=== PATIENT | female | born 1935 | race Caucasian/White ===

== ENCOUNTER 2016-12-01 11:33 | Emergency (ER) | payer OTHER ==
[~2016-12-01] VITALS: Ht 160 cm; Wt 77.4 kg
[~2016-12-01 11:33] MED LIST: ASPI325T4 PO; ATOR-24 PO; CLB200 PO; CLOP1TAB15 PO; COEN150C4 PO; FLUT0.0529 NAE; LEVO50TA60 PO; LSN5 PO; METO25TA56 PO; MULT-884 PO; TRAM-10 PO; VTMD1000 PO; XRL10 PO; [UNRECOGNIZED DRUG - OTHER] OPB
[2016-12-01 11:36] VITALS: TEMP 36.5; Ht 160 cm; Wt 77.4 kg
[2016-12-01] MEDS ORDERED: SYMIN/8045 PO (11:51)
[2016-12-01] MEDS ORDERED: LEVO50TA6 PO (11:51)
[2016-12-01] MEDS ORDERED: PLV75 PO (11:51)
[2016-12-01] MEDS ORDERED: ASPI-461 PO (11:51)
[2016-12-01] MEDS ORDERED: SODIUM CHLORIDE 0.9% 1000ML 1,000 ML IV STA (12:34)
[2016-12-01] MEDS ORDERED: ALBUT/IPRATROP 3MG/0.5MG NEB 3 ML VIAL INH STA (12:34)
[2016-12-01] MEDS ORDERED: SODIUM CHLORIDE 0.9% 1000ML 250 ML IV STA (12:34)
--- NOTE | 2016-12-01 12:36 | EMERGENCY ROOM VISIT NOTE ---
History Report prepared by Richard: Joey Méndze Under the Supervision of: Dr. Rambo Holt M.D. First contact with patient: 12:24 Chief Complaint: FLU LIKE SX Stated Complaint: CHEST CONGESTION History of Present Illness The patient is an 81 year old female who presents to the Emergency Room with complaints of persistent flu-like symptoms for the past five days. The patient started to experiencing congestion and a cough five days ago. The cough is productive. The patient also complains of shortness of breath and pain in her ribs and chest with coughing. She had a fever two days ago, but did not measure her temperature yesterday or today. She denies any nausea, vomiting, diarrhea, bowel or bladder problems, or urinary symptoms. She is keeping up with her fluids. The patient has a history of mild COPD for which she has an inhaler. Her inhaler did help relieve her current symptoms. She does not take Prednisone. She denies any history of diabetes or recent falls. The patient has a history of NM, and notes that the pain she has been feeling in her chest is not similar to the heart attack pain. 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 Source of History: patient, spouse/significant other Onset: five days Position: other (respiratory) Quality: other (flu-like symptoms) Timing: other (persistent) Associated Symptoms: + SOB, + cough, + fevers, No diarrhea, No nausea, No urinary symptoms, No vomiting Review of Systems See HPI for pertinent positives & negatives. A total of 10 systems reviewed and were otherwise negative. 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 Nurse's notes were reviewed and I agree with. Mild COPD Family History Patient reports no known family medical history. Social History Smoking Status: Former Smoker Alcohol Use: none Drug Use: none Current/Historical Medications Scheduled Aspirin (Aspirin), 81 MG PO PM Atorvastatin (Lipitor), 40 MG PO QPM Azithromycin (Zithromax Z-Steven), 0 PO UD Budesonide/Formoterol Fumarate (Symbicort 80/4.5 Inhaler), 1 PUFF PO BID Celecoxib (Celebrex), 200 MG PO BID Cholecalciferol (Vitamin D3), 2,000 INTER.UNIT PO QPM Clopidogrel (Plavix), 75 MG PO DAILY Coenzyme Q10 (Ubidecarenone) (Coq10), 300 MG PO DAILY Fluticasone Propionate (Nasal) (Flonase), 1 SPRAYS CHRIS BID Levothyroxine Sodium (Levothyroxine Sodium), 50 MCG PO QAM Lisinopril (Lisinopril), 5 MG PO DAILY Methylprednisolone (Medrol Dosepak), 0 PO DAILY Metoprolol Tartrate (Lopressor) (Lopressor), 25 MG PO DAILY Multiple Vitamin (Multi Vitamin Daily), 1 TAB PO DAILY Oseltamivir Phosphate (Tamiflu), 1 CAP PO BID Allergies Coded Allergies: Codeine (Verified Allergy, Unknown, 12/01/16) ITCHING,NIGHTMARES Hydrocodone (Verified Adverse Reaction, Mild, NIGHTMARES, ITCHY, 12/01/16) Physical Exam Vital Signs Date Time Temp Pulse Resp B/P Pulse Ox O2 Delivery O2 Flow Rate FiO2 12/01/16 16:09 69 166/81 97 12/01/16 14:00 66 16 144/82 96 12/01/16 11:36 36.5 81 18 165/84 94 Room Air Physical Exam General: Older female with intemrittent cough, appears to be in no respiratory distress. HEENT: Normal cephalic atraumatic. Pupils are equal round and reactive to light. Sclerae are anicteric. Extraocular movements are intact. Oropharynx is pink with moist mucous membranes. No swelling of the mouth lips or tongue. Neck: Supple with a midline trachea. No meningeal signs or stiffness, no JVD or bruits. No Stridor. Chest: Clear to auscultation bilaterally. No wheezes or rhonchi. No increased work of breathing. Heart: regular rate and rhythm. Abdomen: Soft nontender, nondistended without rebound guarding or rigidity. Extremities: No cyanosis clubbing or edema. No calf tenderness or assymetry Spine/Back. Non tender to palpation. No CVA tenderness Skin: Good turgor without rashes. Neurologic exam: Cranial nerves two through 12 are intact. Motor and sensation are intact and symmetrical throughout. Medical Decision & Procedures ER Provider Diagnostic Interpretation: X-ray results as stated below per interpretation by me and the radiologist: CHEST ONE VIEW PORTABLE CLINICAL HISTORY: Chest pain COMPARISON STUDY: Chest radiograph December 15, 2015. 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 Cardiomediastinal silhouette is stable. Mitral annular calcification is again noted. Linear left lung opacities are suggestive atelectasis or scarring. There is no pulmonary edema. There is no consolidation to suggest pneumonia. IMPRESSION: No acute cardiopulmonary findings. Electronically signed by: Ifeanyi Hilario M.D. 12/01/2016 1:16 PM Dictated Date/Time: 12/01/2016 1:15 PM Laboratory Results 12/01/16 12:15 Red Blood Count 4.29, Mean Corpuscular Volume 93.0, Mean Corpuscular Hemoglobin 30.8, Mean Corpuscular Hemoglobin Concent 33.1, Mean Platelet Volume 11.4, Neutrophils (%) (Auto) 50.8, Lymphocytes (%) (Auto) 24.8, Monocytes (%) (Auto) 19.1, Eosinophils (%) (Auto) 4.3, Basophils (%) (Auto) 0.8, Neutrophils # (Auto ) 2.59, Lymphocytes # (Auto) 1.26, Monocytes # (Auto) 0.97, Eosinophils # (Auto ) 0.22, Basophils # (Auto) 0.04 12/01/16 12:15 Test 12/01/16 12:05 12/01/16 12:15 12/01/16 12:46 Influenza Type A Antigen POS for Influ A (NEG) Influenza Type B Antigen Neg for Influ B (NEG) White Blood Count 5.09 K/uL (4.8-10.8) Red Blood Count 4.29 M/uL (4.2-5.4) Hemoglobin 13.2 g/dL (12.0-16.0) Hematocrit 39.9 % (37-47) Mean Corpuscular Volume 93.0 fL (80-100) Mean Corpuscular Hemoglobin 30.8 pg (25-34) Mean Corpuscular Hemoglobin Concent 33.1 g/dl (32-36) Platelet Count 221 K/uL (130-400) Mean Platelet Volume 11.4 fL (7.4-10.4) Neutrophils (%) (Auto) 50.8 % Lymphocytes (%) (Auto) 24.8 % Monocytes (%) (Auto) 19.1 % Eosinophils (%) (Auto) 4.3 % Basophils (%) (Auto) 0.8 % Neutrophils # (Auto) 2.59 K/uL (1.4-6.5) Lymphocytes # (Auto) 1.26 K/uL (1.2-3.4) Monocytes # (Auto) 0.97 K/uL (0.11-0.59) Eosinophils # (Auto) 0.22 K/uL (0-0.5) Basophils # (Auto) 0.04 K/uL (0-0.2) RDW Standard Deviation 46.0 fL (36.4-46.3) RDW Coefficient of Variation 13.5 % (11.5-14.5) Immature Granulocyte % (Auto) 0.2 % Immature Granulocyte # (Auto) 0.01 K/uL (0.00-0.02) Anion Gap 11.0 mmol/L (3-11) Est Creatinine Clear Calc Drug Dose 45.4 ml/min Estimated GFR () 65.5 Estimated GFR (Non- 56.5 BUN/Creatinine Ratio 22.6 (10-20) Calcium Level 8.9 mg/dl (8.5-10.1) Total Bilirubin 0.2 mg/dl (0.2-1) Direct Bilirubin < 0.1 mg/dl (0-0.2) Aspartate Amino Transf (AST/SGOT) 25 U/L (15-37) Alanine Aminotransferase (ALT/SGPT) 26 U/L (12-78) Alkaline Phosphatase 55 U/L (45-117) Total Protein 6.9 gm/dl (6.4-8.2) Albumin 3.2 gm/dl (3.4-5.0) Lipase 108 U/L (73-393) Bedside Troponin I 0.010 ng/ml (0-0.045) NU-Aar-M-Type Natriuretic Peptide 557 pg/ml (0-1800) Laboratory studies as stated above per my review. Medications Administered Medications (Trade) Dose Ordered Sig/Franklin Route Start Time Stop Time Status Last Admin Dose Admin Sodium Chloride 250 ml @ 999 mls/hr Q16M STAT IV 12/01/16 12:34 12/01/16 12:49 DC 12/01/16 12:45 999 MLS/HR Sodium Chloride (Nss 1000ml) 1,000 ml @ 100 mls/hr Q10H STAT IV 12/01/16 12:34 2/18/17 16:33 DC 12/01/16 12:45 100 MLS/HR Albuterol/ Ipratropium (Duoneb) 3 ml NOW STAT INH 12/01/16 12:34 12/01/16 12:36 DC 12/01/16 12:44 3 ML Prednisone (PredniSONE TAB) 60 mg NOW STAT PO 12/01/16 15:18 12/01/16 15:20 DC 12/01/16 15:52 60 MG Azithromycin (Zithromax Tab) 500 mg NOW ONCE PO 12/01/16 15:30 12/01/16 15:32 DC 12/01/16 15:51 500 MG Oseltamivir Phosphate (Tamiflu Cap) 75 mg NOW STAT PO 12/01/16 15:18 12/01/16 15:20 DC 12/01/16 15:52 75 MG Miscellaneous Information (Nursing Verbal Med Order) 1 ea ONE ONCE N/A 12/01/16 16:00 12/01/16 16:01 DC 12/01/16 16:08 1 EA ECG Indication: SOB/dyspnea Rate (beats per minute): 77 Rhythm: normal sinus Findings: no acute ischemic change, other (non-specific T wave abnormalities) Comparison ECG Date: 24 December 2014 Change: no significant change ED Course 1226: Past medical records reviewed. The patient was evaluated in room C8, and a complete history and physical examination were performed. 1234: DuoNeb 3 ml INH, NSS 1000 ml @ 100 mls/hr, NSS 250 ml @ 999 mls/hr. 1518: Tamiflu 75 mg PO, Prednisone 60 mg PO. 1520: Reassessed the patient. Discussed the findings with her. She verbalized understanding and agreement of the treatment plan. The patient is ready for discharge. 1530: Azithromycin 500 mg PO. Medical Decision Differential diagnosis includes influenza, pneumonia, bronchitis, ACS, arrhythmia, electrolyte or metabolic abnormality. This patient comes in as described above. She was placed in room C8. She is here for treatment and evaluation of a cough and flulike symptoms. She has a history of COPD. She did chest pain with coughing. She looks well on exam. She is well-hydrated appearing and nontoxic appearing. IV access was established and she was gently hydrated with IV normal saline. Chest x-ray, EKG , and multiple blood testing was obtained. She has no evidence pneumonia or CHF. EKG is nonischemic appearing unchanged from old. Her troponin is not elevated. She's had no acute electrolyte or metabolic abnormalities. Influenza swab was positive. She does have influenza. I think she has a bronchitis thats exacerbating her COPD as well she did receive albuterol/ Atrovent neb while she was here. She also received prednisone 60 mg by mouth to send her home with a prescription for Tamiflu as well as azithromycin and a Medrol Dosepak to cover these etiologies. She should rest and drink plenty of fluids return if: Worsening of symptoms, shortness of breath, fever or chills, any new problems concerns. She's happy with the plan and discharged to home. She should follow up with her doctor on Saturday for recheck Impression Primary Impression: Influenza A Additional Impression: Bronchitis Scribe Attestation The scribe's documentation has been prepared under my direction and personally reviewed by me in its entirety. I confirm that the note above accurately reflects all work, treatment, procedures, and medical decision making performed by me. Departure Information Dispostion Home / Self-Care Prescriptions Azithromycin (ZITHROMAX Z-STEVEN) 250 Mg Tab 0 PO UD, #1 PKT Prov: Rambo Holt M.D. 12/01/16 Methylprednisolone (MEDROL DOSEPAK) 4 Mg Steven 0 PO DAILY, #1 PKT Prov: Rambo Holt M.D. 12/01/16 Oseltamivir Phosphate (Tamiflu) 75 Mg Cap 1 CAP PO BID for 5 Days, #10 CAP Prov: Rambo Holt M.D. 12/01/16 Referrals RV. Dixon MD (PCP) Forms HOME CARE DOCUMENTATION FORM, IMPORTANT VISIT INFORMATION Patient Instructions My [facility] Additional Instructions Rest. Drink plenty of fluids. Use Tamiflu twice a day for 5 daysfor the flu Use azithromycin Z-Steven as directedantibiotic Continue using your inhaler. Medrol Dosepak as directedsteroid Return if: Worsening of symptoms, shortness of breath, not tolerating fluids, fever chills, any new problems or concerns. Problem Qualifiers
[2016-12-01 12:44] LABS: BASO % 0.8 %; BASO ABS # 0.04 K/uL (0-0.2); COMPLETE YES; EOS % 4.3 %; HEMATOCRIT 39.9 % (37-47); IG% 0.2 %; LYMPH % 24.8 %; LYMPH ABS # 1.26 K/uL (1.2-3.4); MEAN CORPUSCULAR HEMOGLOBIN 30.8 pg (25-34); MEAN CORPUSCULAR HGB CONC 33.1 g/dl (32-36); MEAN PLATELET VOLUME 11.4 fL (7.4-10.4); MONO % 19.1 %; NEUT % 50.8 %; PLATELET COUNT 221 K/uL (130-400); RED BLOOD COUNT 4.29 M/uL (4.2-5.4); WHITE BLOOD COUNT 5.09 K/uL (4.8-10.8)
[2016-12-01 12:53] LABS: ALT/SGPT 26 U/L (12-78); BLOOD UREA NITROGEN 21 mg/dl (7-18); BUN/CREATININE RATIO 22.6 (10-20); CALCIUM 8.9 mg/dl (8.5-10.1); CARBON DIOXIDE 27 mmol/L (21-32); CHLORIDE 106 mmol/L (98-107); CREATININE 0.94 mg/dl (0.60-1.20); GLUCOSE 96 mg/dl (70-99); POTASSIUM 3.9 mmol/L (3.5-5.1); SODIUM 144 mmol/L (136-145)
[2016-12-01 12:56] LABS: ALKALINE PHOSPHATASE 55 U/L (45-117); AST/SGOT 25 U/L (15-37)
[2016-12-01 13:02] LABS: POINT OF CARE TROPONIN I 0.01 ng/ml (0-0.045)
--- NOTE | 2016-12-01 13:17 | DIAGNOSTIC IMAGING REPORT ---
CHEST ONE VIEW PORTABLE CLINICAL HISTORY: Chest pain COMPARISON STUDY: Chest radiograph December 15, 2015. 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 Cardiomediastinal silhouette is stable. Mitral annular calcification is again noted. Linear left lung opacities are suggestive atelectasis or scarring. There is no pulmonary edema. There is no consolidation to suggest pneumonia. IMPRESSION: No acute cardiopulmonary findings. Electronically signed by: Ifeanyi Hilario M.D. 12/01/2016 1:16 PM Dictated Date/Time: 12/01/2016 1:15 PM
[2016-12-01] MEDS ORDERED: OSELTAMIVIR PHOSPHATE 75 MG CAP PO STA (15:18)
[2016-12-01] MEDS ORDERED: AZITTAB PO (15:21)
[2016-12-01] MEDS ORDERED: NF406 PO (15:21)
[2016-12-01] MEDS ORDERED: METH4PAK PO (15:21)
[2016-12-01] MEDS ORDERED: AZITHROMYCIN 250 MG TAB PO ONE (15:30)
[2016-12-01] MEDS ORDERED: EMPTY 8 DRAM VIAL ONE (15:59)
[2016-12-01] MEDS ORDERED: NURSING VERBAL MED ORDER ONE (16:00)
[2016-12-01 16:09] VITALS: BP 166/81; PULSE 69; O2SAT 97
== END 2016-12-01 16:10 | disposition home or self-care (01) ==
LOC: C.EDB 11:34 → C.EDC 16:10
DX: J09.X2 Influenza due to identified novel influenza A virus with other respiratory manifestations (principal); J40 Bronchitis, not specified as acute or chronic; J44.9 Chronic obstructive pulmonary disease, unspecified; I25.2 Old myocardial infarction; Z79.02 Long term (current) use of antithrombotics/antiplatelets; Z79.82 Long term (current) use of aspirin; Z79.899 Other long term (current) drug therapy; Z88.5 Allergy status to narcotic agent

== ENCOUNTER → 2017-01-07 | Outpatient (CLI) | payer OTHER ==
[~2017-01-07] MED LIST changes: +ASPI-461 PO; -ASPI325T4 PO; +LEVO50TA6 PO; -LEVO50TA60 PO; +SYMIN/8045 PO; -TRAM-10 PO; -XRL10 PO; -[UNRECOGNIZED DRUG - OTHER] OPB
[2017-01-07 10:13] LABS: BASO % 1.4 %; BASO ABS # 0.09 K/uL (0-0.2); COMPLETE YES; EOS % 3.4 %; HEMATOCRIT 40.3 % (37-47); IG% 0.2 %; LYMPH % 25.9 %; LYMPH ABS # 1.68 K/uL (1.2-3.4); MEAN CELL VOLUME 91.6 fL (80-100); MEAN CORPUSCULAR HEMOGLOBIN 30.5 pg (25-34); MEAN CORPUSCULAR HGB CONC 33.3 g/dl (32-36); MEAN PLATELET VOLUME 10.9 fL (7.4-10.4); MONO % 9.9 %; NEUT % 59.2 %; PLATELET COUNT 279 K/uL (130-400); WHITE BLOOD COUNT 6.48 K/uL (4.8-10.8)
[2017-01-07 10:52] LABS: ALT/SGPT 22 U/L (12-78); AST/SGOT 20 U/L (15-37); BLOOD UREA NITROGEN 21 mg/dl (7-18); BUN/CREATININE RATIO 22.9 (10-20); CALCIUM 9.3 mg/dl (8.5-10.1); CARBON DIOXIDE 33 mmol/L (21-32); CHLORIDE 105 mmol/L (98-107); GLUCOSE 93 mg/dl (70-99); POTASSIUM 4.2 mmol/L (3.5-5.1); SODIUM 143 mmol/L (136-145)
[2017-01-07 11:03] LABS: ALB/GLOB RATIO 1.1 (0.9-2); ALKALINE PHOSPHATASE 57 U/L (45-117); CHOLESTEROL 227 mg/dl (0-200); CHOLESTEROL/HDL RATIO 3.7; HDL CHOLESTEROL 61 mg/dl; LDL CHOLESTEROL CALCULATED 138 mg/dl; TRIGLYCERIDES 139 mg/dl (0-150); VERY LOW DENSITY LIPOPROT CALC 28 mg/dl
== END | disposition home or self-care (01) ==
LOC: C.LAB 09:49
PROVIDERS: ATTEND Internal Medicine
DX: E03.9 Hypothyroidism, unspecified (principal); E78.5 Hyperlipidemia, unspecified; E55.9 Vitamin D deficiency, unspecified; R26.9 Unspecified abnormalities of gait and mobility; D64.9 Anemia, unspecified

== ENCOUNTER → 2017-09-17 | Outpatient (CLI) | payer OTHER ==
[2017-09-17 10:57] LABS: ALB/GLOB RATIO 0.9 (0.9-2); ALKALINE PHOSPHATASE 73 U/L (45-117); ALT/SGPT 21 U/L (12-78); AST/SGOT 24 U/L (15-37); BLOOD UREA NITROGEN 15 mg/dl (7-18); BUN/CREATININE RATIO 15.9 (10-20); CALCIUM 9.6 mg/dl (8.5-10.1); CARBON DIOXIDE 31 mmol/L (21-32); CHLORIDE 102 mmol/L (98-107); CREATININE 0.96 mg/dl (0.60-1.20); GLUCOSE 94 mg/dl (70-99); POTASSIUM 4.3 mmol/L (3.5-5.1); SODIUM 135 mmol/L (136-145)
== END | disposition home or self-care (01) ==
LOC: C.LAB1850 09:40
PROVIDERS: ATTEND Internal Medicine
DX: J44.9 Chronic obstructive pulmonary disease, unspecified (principal)

== ENCOUNTER → 2018-05-15 | Outpatient (CLI) | payer OTHER ==
[~2018-05-15] MED LIST changes: +LISI-730 PO; -LSN5 PO; +OPTIRAY 320 IV PRN
--- NOTE | 2018-05-15 10:59 | DIAGNOSTIC IMAGING REPORT ---
CT (CHEST) THORAX WITH CT DOSE: 356.03 mGy.cm HISTORY: COPD. Dyspnea. J44.9 Chronic obstructive pulmonary diseas TECHNIQUE: Multiaxial CT images of the chest were performed following the intravenous administration of contrast. A dose lowering technique was utilized adhering to the principles of ALARA. COMPARISON: None. FINDINGS: The lungs are clear. The mediastinal vascular structures are within normal limits. No mediastinal or hilar lymphadenopathy. No pleural effusion or pneumothorax. Limited views of the upper abdomen demonstrate a normal liver and spleen. IMPRESSION: No significant abnormality identified within the chest. The above report was generated using voice recognition software. It may contain grammatical, syntax or spelling errors. Electronically signed by: Celio Trivedi M.D. 05/15/2018 10:58 AM Dictated Date/Time: 05/15/2018 10:56 AM
--- NOTE | 2018-05-15 11:44 | DIAGNOSTIC IMAGING REPORT ---
VIDEO SWALLOW HISTORY: Dysphagia J44.9 Chronic obstructive pulmonary [id number] Esophageal dysmo TECHNIQUE: Video fluoroscopic evaluation of swallowing was performed in the AP and lateral projections by the speech pathology staff. The patient is fed nectar-thick and thin liquid barium, a barium coated wafer, and barium pudding. FLUOROSCOPY TIME: 2.1 minutes. COMPARISON STUDY: None. FINDINGS: There is normal hyoid excursion and epiglottic deflection. Unremarkable hypopharyngeal motility. No evidence for aspiration. Mild esophageal irritability. IMPRESSION: 1. No aspiration identified. Mild esophageal irritability 2. Please see the speech pathologist report for detailed findings and recommendations. The above report was generated using voice recognition software. It may contain grammatical, syntax or spelling errors. Electronically signed by: Celio Trivedi M.D. 05/15/2018 11:42 AM Dictated Date/Time: 05/15/2018 11:41 AM
--- NOTE | 2018-05-15 13:00 | SWALLOWING EVALUATION ---
HISTORY: This 83 year-old woman, from home, who was referred for a VFSS at [facility]. She has a PMH significant for CAD, HTN, TIA, hypothyroidism, and sciatica. She has not had speech therapy in the past. Currently the patient's diet level is regular with thins. Pt. reports no difficulty with swallowing however she feels like something is occasionally stuck in her throat while eating. PROCEDURE: The patient was seen in the Radiology Department of [facility] for the VFSS. Cursory examination of the oral cavity revealed adequate dentition. Movement of the articulators was WNL. The patient was seated on a stool and was viewed in both the Anterior-Posterior (A-P) and Lateral planes. Volitional phonation exercises completed in the A-P plane revealed bilateral vocal fold movement and vocal intensity within functional limits. In the lateral plane, the patient was given the following barium-infused boluses: 1 tsp thin barium with oral hold 1x, self presented single cup swallow-thin barium 1x, self presented serial cup swallow 1x. 1 tsp nectar thick barium with oral hold 1x, self presented single cup swallow- nectar thick barium 1x, self presented serial cup swallows 1x. 1 tsp barium pudding-self presented 2x. 1/2 Cracker with barium paste. In the A-P view, pt was given 1 tsp barium pudding with esophageal scan. RESULTS: Oral Phase:Pt. had adequate lip closure and no labial escape of any food or liquid items presented. Pt. had adequate tongue control and bolus hold by demonstrating a cohesive bolus between tongue and palatal seal. Bolus preparation and mastication was WFL as timely and efficient chewing and mashing was observed with all consistencies. Bolus transport and lingual motion were functional as pt. demonstrated brisk tongue motion and no oral residue resulting in complete oral clearance. Initiation of pharyngeal swallow began with bolus head at posterior angle of ramus. * Overall WFL for oral phase of swallow. Pharyngeal Phase:Soft Palate Elevation was complete for all boluses and no bolus was between the soft palate and the pharyngeal wall. Laryngeal elevation was WFL showing complete superior movement of the thyroid cartilage with complete approximation of arytenoids to epiglottic base. Anterior Hyoid excursion was observed with complete anterior movement as well as complete epiglottic inversion. Laryngeal Vestibular closure was complete and no air or barium was noted in laryngeal vestibule. Pharyngeal stripping wave was present and complete. Pharyngeal contraction was complete for all tested items. Pharyngoesophageal segment opening was also WFL showing complete distension and complete duration with no obstruction of flow. Tongue base retraction was noted with all consistencies and tongue base made effective contact with posterior pharyngeal wall throughout study. There was no Pharyngeal residue resulting in complete pharyngeal clearance of all tested items. *Overall WFL for pharyngeal stage of the swallow. Esophageal Phase:Opening and closing of the UES was timely and efficient with complete clearance of all tested items. Did note esophageal dysmotility. SUMMARY/RECOMMENDATIONS: Overall pt. presents with NO oral or pharyngeal dysphagia. NO aspiration and NO penetration occurred throughout this study. Recommendin. Regular- slippery diet with thin liquids 2. GERD precautions - upright for all intake, remain upright for 30 min after all intake, no intake 30 min before bed, keep head of bed elevated at least 30 degrees at all times. All results and recommendations were discussed with the pt. and family. Written instruction on GERD precautions and slippery diet were provided and fully explained to the pt. and daughter. Thank you for referral of this patient. Please contact me at if any additional information is needed.
== END | disposition home or self-care (01) ==
LOC: C.CTS 10:10
PROVIDERS: ATTEND Internal Medicine Pulmonary Disease
DX: J44.9 Chronic obstructive pulmonary disease, unspecified (principal); K22.4 Dyskinesia of esophagus

== ENCOUNTER 2021-05-08 13:28 | Inpatient (IN) ==
[2021-05-08] MEDS ORDERED: SODIUM CHLORIDE 0.9% 500 ML IV STA (14:37)
[2021-05-08] MEDS ORDERED: ACETAMINOPHEN 500 MG TAB PO STA (14:37)
[2021-05-08] MEDS ORDERED: AMPICILLIN/SULBACTAM SOD 3,000 MG in 0.9 % SODIUM CHLORIDE 100 ML IV STA (14:37)
--- NOTE | 2021-05-08 14:43 | Emergency Department Note ---
Impression & Plan Cat bite of right lower leg, Cellulitis of leg, right ED Provider Note NAME: NAVDEEP MONTES AGE: 86 SEX: F : 1935 ARRIVES VIA: Walk-In INFORMANT: Patient, the patient's daughter ED PROVIDER(S): Roney Bynum DO CHIEF COMPLAINT: Leg pain HPI: The patient is an 86-year-old female who presented to the emergency department for an evaluation of leg pain. The patient has erythema and swelling to her leg. Her daughter gives most of the history and states that this started 24 hours ago. The patient has had very severe pain and is unable to put any weight on her right leg. She denies having any fever or cough. She has no abdominal pain or chest pain. She was not seen by her primary care physician for the symptoms. Her daughter was concerned because of the severity of pain and brought her directly to the emergency department. She was bitten by a cat which is a barn cat 24 hours ago. The cat is up-to-date with immunizations. She did not take any medications other than Tylenol this morning. She states the pain is moderate to severe and worsens with any ambulation. She does have a history of COPD and has had some breathing difficulties recently but her daughter states that her breathing at this time is improved and is comparable to her baseline. She denies having any drainage from the bite. She is not on any antibiotics. ROS: See above HPI for pertinent positives & negatives. A total of 10 systems reviewed and were otherwise negative. PAST MEDICAL HISTORY: See Below PAST SURGICAL HISTORY: See Below FAMILY HISTORY: See Below SOCIAL HISTORY: See Below HOME MEDICATIONS: See Below ALLERGIES: See Below VITALS: See Below PHYSICAL EXAMINATION: GENERAL: The patient is awake and alert. She is somewhat anxious appearing and appears to be uncomfortable. EYES: The conjunctivae are clear. The pupils are round and reactive. EARS, NOSE, MOUTH AND THROAT: The nose is without any evidence of any deformity. NECK: The neck is nontender and supple. RESPIRATORY: Diminished breath sounds are noted throughout. There is no tachypnea or conversational dyspnea. CARDIOVASCULAR: Regular rate and rhythm noted there no murmurs rubs or gallops normal S1 normal S2. GASTROINTESTINAL: The abdomen is soft. Abdomen is nontender. MUSCULOSKELETAL/EXTREMITIES: There is no evidence of gross deformity full range of motion is noted in the hips and shoulders. SKIN: There is significant ankle edema noted in the right leg. There is erythema which is circumferential in most of the right lower extremity. Pulses are symmetric in both feet. There is a puncture wound to the anterior right leg. There is no drainage. NEUROLOGIC: Patient is awake alert and oriented to person place and situation. Strength is symmetric. MEDICAL DECISION MAKING: The patient is an 86-year-old female who presented to the emergency department for an evaluation of leg pain. The patient had a cat bite with her own cat yesterday. The cat does stay outside mostly but is up-to-date with immunizations. The family noticed that the leg was swollen and red over the course the last 24 hours. The patient was found to have a very elevated white blood cell count. She was treated with IV antibiotics in the emergency department. She was reevaluated multiple times. I discussed the patient's laboratory and radiographic studies with her. Given her age and comorbidities I do not feel the patient would do well as an outpatient treating this cat bite associated cellulitis. For this reason I discussed her case with the on-call [facility] hospitalist. They have agreed to evaluate the patient in the emergency department for further management and disposition. Triage Nursing notes reviewed. Prior medical records reviewed Vital Signs: reviewed and remarkable for hypotension. Differential diagnosis: Cellulitis, abscess, MRSA infection, DVT, necrotizing fasciitis, dermatitis, drug eruption, allergic reaction, as well as other pathologies. ER treatment provided: See below Diagnostics interpreted by me: ECG: none Laboratory studies: As stated above and show below. Imaging studies: See below Consultation(s): 1640: I discussed this case with Dr. Chacon who is on-call for the [facility] group. He will evaluate the patient in the emergency department. Past Med/Surg History Medical History Arteriosclerotic coronary artery disease Asthmatic bronchitis DVT (deep venous thrombosis) Dyslipidemia Esophageal dysmotility Fatigue Gait disturbance History of anemia History of dysphagia Hypothyroidism Low back pain Lump of skin Old inferior wall myocardial infarction Osteopenia Pulmonary emphysema Shortness of breath on exertion Statin intolerance Vitamin D deficiency Family History Father Prostate cancer Unknown Thyroid disease Denies family history of Colon cancer Ovarian cancer Myocardial infarction Breast cancer Social History Smoking Status: Never smoker Number of Years Since Quit: 6; Hx Alcohol Use: No Hx Substance Use: No Visual Impairment: No Limitations Hearing Ability: Use of Hearing Aid marital status: / Current Living Situation: Family current occupational status: retired Feels Safe at Home: Yes Childhood Exposure to Second-Hand Smoke: No Dental Care, Regularly: Yes Physical Activity Frequency: Does not Exercise Seatbelt Use: always Sunscreen Use: Yes Allergies Allergies Allergy/AdvReac Type Severity Reaction Status Date / Time codeine Allergy Unknown Unknown Verified 05/08/21 16:25 hydrocodone AdvReac Mild NIGHTMARES, Verified 05/08/21 16:25 ITCHY Ksmiaes-Zxj-Lao Reductase AdvReac muscle Verified 05/08/21 16:25 Inhibitor aches Home Meds Previous Rx's Medication Instructions Recorded aspirin 81 mg tablet,delayed 81 mg PO DAILY #30 tab 04/01/19 release (Adult Low Dose Aspirin) ereatue-zksarqtfb-locm 333 mg-133 2 tab PO DAILY #60 tab 04/01/19 mg-5 mg tablet cholecalciferol (vitamin D3) 50 2,000 units PO DAILY #30 cap 04/01/19 mcg (2,000 unit) capsule coenzyme Q10 10 mg capsule 10 mg PO DAILY #90 cap 04/01/19 fluticasone propionate 50 1 sprays INTNAS DAILY #16 gm 04/01/19 mcg/actuation nasal spray,suspension (Allergy Relief (fluticasone)) levothyroxine 50 mcg capsule 50 mcg PO DAILY #90 cap 04/01/19 nitroglycerin 0.4 mg sublingual 0.4 mg SL Q5M PRN #25 tab 04/01/19 tablet (Nitrostat) lisinopril 5 mg tablet 5 mg PO DAILY #90 tab 12/21/20 metoprolol tartrate 25 mg tablet 25 mg PO DAILY #90 tab 12/21/20 albuterol sulfate 90 mcg/actuation 2 puff INHALATION QID #8.5 g 01/02/21 aerosol inhaler umeclidinium 62.5 mcg-vilanterol 1 inh INHALATION DAILY #60 ea 01/02/21 25 mcg/actuation powdr for inhalation (Anoro Ellipta) Results & Data (ED) Vital Signs Vital Signs - 24 hr 05/08/21 13:33 05/08/21 15:21 Temperature 37.1 C Temperature Source Temporal Artery Scan Pulse Rate 92 H Pulse Rate [Right Finger] 88 Respiratory Rate 16 20 Blood Pressure 139/66 Blood Pressure Mean 90 Pulse Oximetry 90 94 Oxygen Delivery Method Room Air Room Air Sepsis Recent Fever Within 48 Hours No Sepsis New/Unexplained Change in Mental Status No Sepsis Action Taken by Nursing No Action Required Home Medications Current Medication List: was personally reviewed by me Laboratory Data Attestation: I reviewed the patient's lab results. Result diagrams: 05/08/21 15:19 05/08/21 15:19 Lab Results 05/08/21 05/08/21 05/08/21 Range/Units 15:19 15:19 15:19 WBC 20.19 H (4.8-10.8) K/uL RBC 4.27 (4.2-5.4) M/uL Hgb 13.3 (12.0-16.0) g/dL Hct 39.6 (37-47) % MCV 92.7 (80-100) fL MCH 31.1 (25-34) pg MCHC 33.6 (32-36) g/dL RDW Std Deviation 46.6 H (36.4-46.3) fL RDW Coeff of Lior 13.7 (11.5-14.5) % Plt Count 252 (130-400) K/uL MPV 11.1 H (7.4-10.4) fL Immature Gran % (Auto) 0.3 % Neut % (Auto) 86.8 % Lymph % (Auto) 3.7 % Dillon % (Auto) 9.0 % Eos % (Auto) 0.1 % Baso % (Auto) 0.1 % Neut # (Auto) 17.51 H (1.4-6.5) K/uL Lymph # (Auto) 0.75 L (1.2-3.4) K/uL Dillon # (Auto) 1.81 H (0.11-0.59) K/uL Eos # (Auto) 0.03 (0-0.5) K/uL Baso # (Auto) 0.02 (0-0.2) K/uL Immature Gran # (Auto) 0.07 H (0.00-0.02) K/uL ESR 55 H (0-30) mm/hr Sodium 135 L (136-145) mmol/L Potassium 4.0 (3.5-5.1) mmol/L Chloride 102 (98-107) mmol/L Carbon Dioxide 29 (21-32) mmol/L Anion Gap 4.0 (3-11) BUN 25 H (7-18) mg/dl Creatinine 1.06 (0.6-1.2) mg/dl Est Cr Clr Drug Dosing Not Reportable Est GFR ( Amer) 54.7 ml/min Est GFR (Non-Af Amer) 47.2 ml/min BUN/Creatinine Ratio 23.4 H (10-20) Glucose 100 H (70-99) mg/dl Calcium 9.6 (8.5-10.1) mg/dl Total Bilirubin 0.6 (0.2-1) mg/dl AST 21 (15-37) U/L ALT 23 (12-78) U/L Alkaline Phosphatase 67 (45-117) U/L C-Reactive Protein 2.71 H (0-0.29) mg/dl Total Protein 7.7 (6.4-8.2) gm/dl Albumin 3.8 (3.4-5.0) gm/dl Globulin 3.9 (2.5-4.0) gm/dl Albumin/Globulin Ratio 1.0 (0.9-2) Procalcitonin (0-0.5) ng/ml COVID-19 Eval Order SARS-CoV-2 (PCR) (Negative) 05/08/21 05/08/21 05/08/21 Range/Units 15:19 16:43 16:43 WBC (4.8-10.8) K/uL RBC (4.2-5.4) M/uL Hgb (12.0-16.0) g/dL Hct (37-47) % MCV (80-100) fL MCH (25-34) pg MCHC (32-36) g/dL RDW Std Deviation (36.4-46.3) fL RDW Coeff of Lior (11.5-14.5) % Plt Count (130-400) K/uL MPV (7.4-10.4) fL Immature Gran % (Auto) % Neut % (Auto) % Lymph % (Auto) % Dillon % (Auto) % Eos % (Auto) % Baso % (Auto) % Neut # (Auto) (1.4-6.5) K/uL Lymph # (Auto) (1.2-3.4) K/uL Dillon # (Auto) (0.11-0.59) K/uL Eos # (Auto) (0-0.5) K/uL Baso # (Auto) (0-0.2) K/uL Immature Gran # (Auto) (0.00-0.02) K/uL ESR (0-30) mm/hr Sodium (136-145) mmol/L Potassium (3.5-5.1) mmol/L Chloride (98-107) mmol/L Carbon Dioxide (21-32) mmol/L Anion Gap (3-11) BUN (7-18) mg/dl Creatinine (0.6-1.2) mg/dl Est Cr Clr Drug Dosing Est GFR ( Amer) ml/min Est GFR (Non-Af Amer) ml/min BUN/Creatinine Ratio (10-20) Glucose (70-99) mg/dl Calcium (8.5-10.1) mg/dl Total Bilirubin (0.2-1) mg/dl AST (15-37) U/L ALT (12-78) U/L Alkaline Phosphatase (45-117) U/L C-Reactive Protein (0-0.29) mg/dl Total Protein (6.4-8.2) gm/dl Albumin (3.4-5.0) gm/dl Globulin (2.5-4.0) gm/dl Albumin/Globulin Ratio (0.9-2) Procalcitonin 2.44 H (0-0.5) ng/ml COVID-19 Eval Order Covid19 at [facility] SARS-CoV-2 (PCR) NEGATIVE (Negative) Administered Medications Acetaminophen (Acetaminophen 325 Mg Tab) 650 mg PO Q4H PRN PRN Reason: pain/fever Stop: 06/07/21 20:53 Last Admin: 05/08/21 22:27 Dose: 650 mg Documented by: [id number] Enoxaparin Sodium (Enoxaparin Inj 40 Mg/0.4 Ml Syr) 40 mg SQ HS RORY Stop: 06/07/21 21:44 Last Admin: 05/08/21 22:27 Dose: 40 mg Documented by: [id number] Ampicillin Sodium/Sulbactam Sodium 3,000 mg/ Sodium Chloride 108 mls @ 200 mls/hr IV Q6H RORY; Protocol Stop: 05/15/21 16:59 Last Infusion: 05/08/21 23:52 Dose: 0 mls/hr Documented by: [id number] Admin: 05/08/21 22:29 Dose: 200 mls/hr Documented by: [id number] Admin: 05/08/21 18:10 Dose: Not Given Documented by: [id number] Discontinued Medications Acetaminophen (Acetaminophen 500 Mg Tab) 1,000 mg PO NOW STA Stop: 05/08/21 14:38 Last Admin: 05/08/21 15:56 Dose: 1,000 mg Documented by: [id number] Diphtheria/Pertussis/Tetanus Vacc (Diphtheria/Tetanus/Pertussis 0.5 Ml Syr/Vial) 0.5 ml IM .ONCE ONE Stop: 05/08/21 16:11 Last Admin: 05/08/21 16:45 Dose: 0.5 ml Documented by: [id number] Sodium Chloride (Nss) 500 mls @ 999 mls/hr IV .Q31M STA Stop: 05/08/21 15:07 Last Infusion: 05/08/21 16:30 Dose: 0 mls/hr Documented by: [id number] Admin: 05/08/21 15:56 Dose: 999 mls/hr Documented by: [id number] Ampicillin Sodium/Sulbactam Sodium 3,000 mg/ Sodium Chloride 108 mls @ 200 mls/hr IV NOW STA; Protocol Stop: 05/08/21 15:09 Last Infusion: 05/08/21 16:30 Dose: 0 mls/hr Documented by: [id number] Admin: 05/08/21 15:56 Dose: 200 mls/hr Documented by: [id number] Imaging Data Radiologist's Impression: Chest X-Ray 05/08/21 14:37 XR chest 1V portable CLINICAL HISTORY: Fever COMPARISON STUDY: Chest radiograph December 01, [address] April 04, 2021. 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 There is no pneumothorax or pleural effusion. There is no consolidation or evidence for pulmonary edema. Mild cardiomegaly is again noted. IMPRESSION: No acute cardiopulmonary findings. ACT 112: Negative or not required by law. Electronically signed by: Ifeanyi Hilario M.D. 05/08/2021 3:32 PM Tibia/Fibula X-Ray 05/08/21 14:37 XR tibia fibula RT 2V CLINICAL HISTORY: Bite. Right lower leg pain. COMPARISON: Right knee radiographs January 28, 2015. FINDINGS: Alignment of the right knee arthroplasty is anatomic. There is no periprosthetic fracture or lucency. There is no fracture within the right tibia or fibula. There is no evidence for acute osteomyelitis. There is mild posterior and minimal plantar calcaneal spurring. IMPRESSION: 1. No significant osseous abnormality within the right tibia or fibula. 2. Right lower leg soft tissue swelling. 3. Intact total right knee arthroplasty. ACT 112: Negative or not required by law. Electronically signed by: Ifeanyi Hialrio M.D. 05/08/2021 3:35 PM Venous Doppler Study 05/08/21 14:37 US venous doppler LE RT HISTORY: 86 years-old Female swelling acute pain and swelling of the right lower leg COMPARISON: 06/17/2018 TECHNIQUE: Multiple real-time sonographic images of the right lower extremity deep venous structures were obtained assessing grayscale appearance, color and spectral flow FINDINGS: Normal flow, compressibility, phasicity and augmentation. IMPRESSION: No sonographic evidence of deep venous thrombosis. ACT 112: Negative or not required by law. The above report was generated using voice recognition software. It may contain grammatical, syntax or spelling errors. Electronically signed by: Hardik Levy M.D. 05/08/2021 4:24 PM Discharge Plan Visit Data Chief Complaint: Leg Injury/Pain Stated Complaint: CANNOT STAND, LEG PAIN, VOMTING ED Provider: Roney Bynum Discharge Problem: Cat bite of right lower leg, Cellulitis of leg, right Patient Disposition: Admitted As Inpatient Discharge Instructions Interventions: ED Discharge Assessment Last Done: 05/08/21 19:45
--- NOTE | 2021-05-08 15:34 | XRay Report ---
XR chest 1V portable CLINICAL HISTORY: Fever COMPARISON STUDY: Chest radiograph December 01, [address] April 04, 2021. 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 There is no pneumothorax or pleur al effusion. There is no consolidation or evidence for pulmonary edema. Mild cardiomegaly is again no bijan. IMPRESSION: No acute cardiopulmonary findings. ACT 112: Negative or not required by law. Electronically signed by: Ifeanyi Hilario M.D. 05/08/2021 3:32 PM
[2021-05-08 15:35] LABS: Basophils # (auto) 0.02 K/uL (0-0.2); Basophils % (auto) 0.1 %; Eosinophils # (auto) 0.03 K/uL (0-0.5); Eosinophils % (auto) 0.1 %; Hematocrit (blood only) 39.6 % (37-47); Hemoglobin 13.3 g/dL (12.0-16.0); Immature Granulocytes # (auto) 0.07 K/uL (0.00-0.02); Immature Granulocytes % (auto) 0.3 %; Lymphocytes # (auto) 0.75 K/uL (1.2-3.4); Lymphocytes % (auto) 3.7 %; Mean Corpuscular Hemoglobin 31.1 pg (25-34); Mean Corpuscular Hgb Conc 33.6 g/dL (32-36); Mean Corpuscular Volume 92.7 fL (80-100); Mean Platelet Volume 11.1 fL (7.4-10.4); Monocytes # (auto) 1.81 K/uL (0.11-0.59); Neutrophils # (auto) 17.51 K/uL (1.4-6.5); Neutrophils % (auto) 86.8 %; Platelet Count 252 K/uL (130-400); RDW Coefficient of Variation 13.7 % (11.5-14.5); RDW Standard Deviation 46.6 fL (36.4-46.3); Red Blood Count 4.27 M/uL (4.2-5.4); White Blood Count 20.19 K/uL (4.8-10.8)
--- NOTE | 2021-05-08 15:36 | XRay Report ---
XR tibia fibula RT 2V CLINICAL HISTORY: Bite. Right lower leg pain. COMPARISON: Right knee radiographs January 28, 2015. FINDINGS: Alignment of the right knee arthroplasty is anatomic. There is no periprosthetic fracture or lucency. There is no fracture within the right tibia or fibula. There is no evidence for acute ost eomyelitis. There is mild posterior and minimal plantar calcaneal spurring. IMPRESSION: 1. No significant osseous abnormality within the right tibia or fibula. 2. Right lower leg soft tissue swelling. 3. Intact total right knee arthroplasty. ACT 112: Negative or not required by law. Electronically signed by: Ifeanyi Hilario M.D. 05/08/2021 3:35 PM
[2021-05-08 16:02] LABS: Alanine Aminotransferase 23 U/L (12-78); Albumin Level 3.8 gm/dl (3.4-5.0); Aspartate Aminotransferase 21 U/L (15-37); BUN Creatinine Ratio 23.4 (10-20); Blood Urea Nitrogen 25 mg/dl (7-18); Calcium 9.6 mg/dl (8.5-10.1); Carbon Dioxide 29 mmol/L (21-32); Chloride 102 mmol/L (98-107); Est GFR (African American) 54.7 ml/min; Est GFR (Non-African American) 47.2 ml/min; Glucose 100 mg/dl (70-99); Sodium 135 mmol/L (136-145)
[2021-05-08 16:05] LABS: Alkaline Phosphatase 67 U/L (45-117); Bilirubin,Total 0.6 mg/dl (0.2-1); C Reactive Protein 2.71 mg/dl (0-0.29); Globulin 3.9 gm/dl (2.5-4.0); Total Protein 7.7 gm/dl (6.4-8.2)
[2021-05-08] MEDS ORDERED: DIPHTHERIA/TETANUS/PERTUSSIS 0.5 ML SYR/VIAL IM ONE (16:10)
--- NOTE | 2021-05-08 16:26 | Ultrasound Report ---
US venous doppler LE RT HISTORY: 86 years-old Female swelling acute pain and swelling of the right lower leg COMPARISON: 06/17/2018 TECHNIQUE: Multiple real-time sonographic images of the right lower extremity deep venous structures were obtained assessing grayscale appearance, color and spectral flow FINDINGS: Normal flow, compressibility, phasicity and augmentation. IMPRESSION: No sonographic evidence of deep venous thrombosis. ACT 112: Negative or not required by law. The above report was generated using voice recognition software. It may contain grammatical, syntax o r spelling errors. Electronically signed by: Hardik Levy M.D. 05/08/2021 4:24 PM
--- NOTE | 2021-05-08 17:16 | History & Physical Report ---
Date of Service May 08, 2021 Assessment & Plan (1) Cellulitis: Plan: Cellulitis with concern for cat bite, started on unasyn in ER, continued, blood cultures, , wbc crp and procal is up (2) Pulmonary emphysema: Plan: is stable at this time continues on albuterol , fluticasone, mometasome- formoterol plus umeclidinium-vilanterol (3) Hypothyroidism: Plan: continue Synthroid (4) DVT (deep venous thrombosis): Plan: hisotory of will have on lovenox (5) HTN (hypertension): Plan: continue on metoprolol and lisinopril History of Present Illness Primary Care Provider: Helen Cox MD 86 F with RLE cellulitis, repiortedly was with kittens that were biting and scratching legs, also has been gardening recently, leg is too painful to stand and walk, erythema from ankle to just below knee, knee is replaced, otherwise no fever, elevated inflammatory markers. Area of concern do not look consistent with animal bite or scratch lau, Pt has been vaccinated for covid december 2020. No other systemic complaints Allergies Allergy/AdvReac Type Severity Reaction Status Date / Time codeine Allergy Unknown Unknown Verified 05/08/21 16:25 hydrocodone AdvReac Mild NIGHTMARES, Verified 05/08/21 16:25 ITCHY Gvrwtkx-Rdd-Hmx Reductase AdvReac muscle Verified 05/08/21 16:25 Inhibitor aches Home Medications Medication Instructions Recorded Confirmed Type aspirin 81 mg tablet,delayed 81 mg PO DAILY #30 tab 04/01/19 05/08/21 Rx release (Adult Low Dose Aspirin) xhzkpna-tdmstrryo-rfkb 333 mg-133 2 tab PO DAILY #60 tab 04/01/19 05/08/21 Rx mg-5 mg tablet cholecalciferol (vitamin D3) 50 2,000 units PO DAILY #30 cap 04/01/19 05/08/21 Rx mcg (2,000 unit) capsule coenzyme Q10 10 mg capsule 10 mg PO DAILY #90 cap 04/01/19 05/08/21 Rx fluticasone propionate 50 1 sprays INTNAS DAILY #16 gm 04/01/19 05/08/21 Rx mcg/actuation nasal spray,suspension (Allergy Relief (fluticasone)) levothyroxine 50 mcg capsule 50 mcg PO DAILY #90 cap 04/01/19 05/08/21 Rx nitroglycerin 0.4 mg sublingual 0.4 mg SL Q5M PRN #25 tab 04/01/19 05/08/21 Rx tablet (Nitrostat) mometasone-formoterol HFA 100 2 inh INH BID #13 g 07/25/20 05/08/21 Rx mcg-5 mcg/actuation aerosol inhaler (Dulera) lisinopril 5 mg tablet 5 mg PO DAILY #90 tab 12/21/20 05/08/21 Rx metoprolol tartrate 25 mg tablet 25 mg PO DAILY #90 tab 12/21/20 05/08/21 Rx albuterol sulfate 90 mcg/actuation 2 puff INHALATION QID #8.5 g 01/02/21 05/08/21 Rx aerosol inhaler umeclidinium 62.5 mcg-vilanterol 1 inh INHALATION DAILY #60 ea 01/02/21 05/08/21 Rx 25 mcg/actuation powdr for inhalation (Anoro Ellipta) Past Med/Surg History Medical History (Updated 05/08/21 @ 17:44 by Andrea Chacon MD) Arteriosclerotic coronary artery disease Asthmatic bronchitis DVT (deep venous thrombosis) Esophageal dysmotility Fatigue Gait disturbance History of anemia History of dysphagia Hypothyroidism Low back pain Lump of skin Old inferior wall myocardial infarction Osteopenia Pulmonary emphysema Shortness of breath on exertion Statin intolerance Vitamin D deficiency Family History Father Prostate cancer Unknown Thyroid disease Denies family history of Colon cancer Ovarian cancer Myocardial infarction Breast cancer Social History Smoking Status: Never smoker Number of Years Since Quit: 6; Hx Alcohol Use: No Hx Substance Use: No Visual Impairment: No Limitations Hearing Ability: Use of Hearing Aid marital status: / Current Living Situation: Family current occupational status: retired Feels Safe at Home: Yes Childhood Exposure to Second-Hand Smoke: No Dental Care, Regularly: Yes Physical Activity Frequency: Does not Exercise Seatbelt Use: always Sunscreen Use: Yes Review of Systems Constitutional: + fatigue and + weakness Eyes: no diplopia and no problem reported Ear, Nose, Mouth, Throat: no nasal discharge, no dental pain and no sore throat Respiratory: no cough, no chest congestion and no dyspnea Cardiovascular: no chest pain and no dyspnea on exertion Gastrointestinal: no abdominal pain, no nausea and no vomiting Genitourinary: no dysuria, no difficulty urinating and no urinary frequency Musculoskeletal: no joint pain and no swelling Integumentary: no rash and no lesions Neurologic: + radiating pain; no paralysis and no numbness Psychiatric: no depression and no anxiety Physical Exam Constitutional: well developed and well nourished Eyes: PERRL, conjunctivae normal, anicteric sclerae Neck: trachea midline Thyroid: normal thyroid Respiratory: normal respiratory effort, lungs clear to auscultation Cardiovascular: RRR, no murmur, no edema Gastrointestinal (Abdomen): normal bowel sounds, soft, nontender, no hepatosplenomegaly Musculoskeletal: no cyanosis or clubbing, extremities motor strength 5/5 Skin: no rashes, warm and dry + rash, + skin tightening and + erythema Neurologic: PERRL, EOMI, accommodation nl, no face palsy, no dysarthria Psychiatric: A+Ox3, euthymic affect Results & Data Results & Data ([facility]) Vital Signs (Past 12 Hours) Vital Signs Temp Pulse Pulse Resp BP Pulse Ox 05/08/21 15:21 88 20 94 05/08/21 13:33 98.8 F 92 H 16 139/66 90 Diagnostic Findings Chest X-Ray 05/08/21 14:37 XR chest 1V portable CLINICAL HISTORY: Fever COMPARISON STUDY: Chest radiograph December 01, [address] April 04, 2021. 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 There is no pneumothorax or pleural effusion. There is no consolidation or evidence for pulmonary edema. Mild cardiomegaly is again noted. IMPRESSION: No acute cardiopulmonary findings. ACT 112: Negative or not required by law. Electronically signed by: Ifeanyi Hilario M.D. 05/08/2021 3:32 PM Tibia/Fibula X-Ray 05/08/21 14:37 XR tibia fibula RT 2V CLINICAL HISTORY: Bite. Right lower leg pain. COMPARISON: Right knee radiographs January 28, 2015. FINDINGS: Alignment of the right knee arthroplasty is anatomic. There is no periprosthetic fracture or lucency. There is no fracture within the right tibia or fibula. There is no evidence for acute osteomyelitis. There is mild posterior and minimal plantar calcaneal spurring. IMPRESSION: 1. No significant osseous abnormality within the right tibia or fibula. 2. Right lower leg soft tissue swelling. 3. Intact total right knee arthroplasty. ACT 112: Negative or not required by law. Electronically signed by: Ifeanyi Hilario M.D. 05/08/2021 3:35 PM Venous Doppler Study 05/08/21 14:37 US venous doppler LE RT HISTORY: 86 years-old Female swelling acute pain and swelling of the right lower leg COMPARISON: 06/17/2018 TECHNIQUE: Multiple real-time sonographic images of the right lower extremity deep venous structures were obtained assessing grayscale appearance, color and spectral flow FINDINGS: Normal flow, compressibility, phasicity and augmentation. IMPRESSION: No sonographic evidence of deep venous thrombosis. ACT 112: Negative or not required by law. The above report was generated using voice recognition software. It may contain grammatical, syntax or spelling errors. Electronically signed by: Hardik Levy M.D. 05/08/2021 4:24 PM Code Status & VTE Plan VTE Prophylaxis Plan VTE Prophylaxis will be ordered: Yes PG Care Time/CCT Total # of Minutes Spent Total Time Spent with Patient: Total time spent is greater than 50% in coordination of care (as documented) at patient's floor/unit and/or counseling patient: Coding Level of Care Code INT OBSERVATION CARE 50M LVL 2 Diagnoses Pulmonary emphysema J43.9 Hypothyroidism E03.9 DVT (deep venous thrombosis) I82.409 Cellulitis L03.90 HTN (hypertension) I10
[2021-05-08] MEDS: AMPICILLIN/SULBACTAM SOD 3,000 MG in 0.9 % SODIUM CHLORIDE 100 ML IV SCH ×2 (18:10→22:29)
[2021-05-08] MEDS ORDERED: NITROGLYCERIN SL 0.4 MG/TAB TAB SL PRN (20:54)
[2021-05-08] MEDS ORDERED: ALBUTEROL HFA 8 GM INHALER INH PRN (20:54)
[2021-05-08] MEDS ORDERED: ALUMINUM/MAGNESIUM SUSP 30 ML UDC PO PRN (20:54)
[2021-05-08] MEDS ORDERED: ONDANSETRON INJ 2 MG/ML 2 ML VIAL IV PRN (20:54)
[2021-05-08] MEDS ORDERED: [UNRECOGNIZED DRUG - OTHER] INH SCH (21:00)
[2021-05-08] MEDS: ENOXAPARIN INJ 40 MG/0.4 ML SYR SQ SCH (22:27)
[2021-05-08] MEDS: ACETAMINOPHEN 325 MG TAB PO PRN (22:27)
[2021-05-09] MEDS: AMPICILLIN/SULBACTAM SOD 3,000 MG in 0.9 % SODIUM CHLORIDE 100 ML IV SCH ×2 (05:00→09:56)
[2021-05-09] MEDS: LEVOTHYROXINE SODIUM 50 MCG TABLET PO SCH (05:39)
[2021-05-09] MEDS: FLUTICASONE PROPIONATE NA SPR 16 GM BTL SCH (08:14)
[2021-05-09] MEDS: UMECLIDINIUM/VILANTEROL 62.5/25MCG 7 PUFFS/INHALER INH SCH (08:14)
[2021-05-09 08:15] LABS: Basophils # (auto) 0.03 K/uL (0-0.2); Basophils % (auto) 0.2 %; Eosinophils # (auto) 0.23 K/uL (0-0.5); Eosinophils % (auto) 1.7 %; Hematocrit (blood only) 33.3 % (37-47); Hemoglobin 10.9 g/dL (12.0-16.0); Immature Granulocytes # (auto) 0.03 K/uL (0.00-0.02); Immature Granulocytes % (auto) 0.2 %; Lymphocytes # (auto) 1.69 K/uL (1.2-3.4); Lymphocytes % (auto) 12.7 %; Mean Corpuscular Hemoglobin 30.4 pg (25-34); Mean Corpuscular Hgb Conc 32.7 g/dL (32-36); Mean Platelet Volume 10.8 fL (7.4-10.4); Monocytes # (auto) 1.55 K/uL (0.11-0.59); Monocytes % (auto) 11.6 %; Neutrophils % (auto) 73.6 %; Platelet Count 212 K/uL (130-400); RDW Standard Deviation 48.1 fL (36.4-46.3); Red Blood Count 3.58 M/uL (4.2-5.4); White Blood Count 13.33 K/uL (4.8-10.8)
[2021-05-09] MEDS: ASPIRIN 81 MG ECTAB PO SCH (08:15)
[2021-05-09] MEDS: CHOLECALCIFEROL 1,000 UNITS 25 MCG TAB PO SCH (08:15)
[2021-05-09] MEDS: lisinopril 5 MG TAB PO SCH (08:15)
[2021-05-09] MEDS: METOPROLOL TARTRATE 25 MG TAB PO SCH (08:15)
[2021-05-09 08:42] LABS: BUN Creatinine Ratio 22.9 (10-20); Calcium 8.5 mg/dl (8.5-10.1); Creatinine Clr Calc Pharmacy 43.5 ml/min; Est GFR (African American) 72.4 ml/min; Est GFR (Non-African American) 62.5 ml/min; Potassium 3.8 mmol/L (3.5-5.1)
[2021-05-09] MEDS ORDERED: NON-FORMULARY MEDICATION (Coenzyme Q10 10 mg capsule) PO SCH (09:00)
[2021-05-09] MEDS ORDERED: PIPERACILL/TAZOBAC CONSULT ACTIVE PRN (14:08)
[2021-05-09] MEDS ORDERED: PIPERACILLIN/TAZOBACTAM 4.5 GM in DEXTROSE 5% 100 ML IV SCH (14:15)
[2021-05-09] MEDS ORDERED: PIPERACILLIN/TAZOBACTAM 4.5 GM in DEXTROSE 5% 100 ML IV ONE (15:30)
[2021-05-09] MEDS: ACETAMINOPHEN 325 MG TAB PO PRN (15:52)
--- NOTE | 2021-05-09 20:22 | Hospitalist Progress Note ---
Date of Service May 09, 2021 Assessment & Plan (1) Cellulitis: Plan: Cellulitis with concern for cat bite, started on unasyn in ER, continued, blood cultures, resulted gram-negative will change to Zosyn for Pseudomonas coverage and note that white count is reduced by 50%. Continue to wait for identification of gram-negative bacilli in 3 of 4 bottles (2) Pulmonary emphysema: Plan: Remains stable at this time continues on albuterol , fluticasone, mometasome- formoterol plus umeclidinium-vilanterol (3) Hypothyroidism: Plan: continue Synthroid (4) DVT (deep venous thrombosis): Plan: hisotory of will have on lovenox (5) HTN (hypertension): Plan: continue on metoprolol and lisinopril Admission and Anticipated Discharge Date Admission Date: May 09, 2021 Subjective Patient feels better leukocytosis is improved however her erythema in her leg is about the same. Blood cultures have resulted in 3-4 bottles showing gram- negative bacilli antibiotics amended to Zosyn therapy for Pseudomonas coverage and to continue coverage for animal bite Review of Systems Review of Systems: Mild distress and fatigue no headache, no visual changes no speech or swallowing issues no chest pain, pressure or palpitations no shortness of breath, cough or wheezes no abdominal pain, nausea or vomiting, diarrhea or constipation no dysuria, hematuria or frequency Improving leg discomfort still some swelling no back pain, CVA tenderness or radicular pain Erythema to leg is still in the demarcated area but not worse or better no focal signs of weakness or numbness or altered sensation no complaints of anxiety or depression.. Physical Exam Physical Exam: The patient appeared well nourished and normally developed. Vital signs as documented. Head exam is normocephalic atraumatic Neck is without JVD, thyromegaly, or carotid bruits. Lungs are clear to auscultation, no focal loss of breath sounds Cardiac exam, Rhythm is regular.. No murmurs, rubs or gallops. Abdominal exam reveals normal bowel sounds, soft non tender, no masses Extremities are nonedematous and both pedal pulses are present leg pain is improved somewhat Neurologic exam is alert and oriented, no focal loss of strength or sensation Skin is with erythematous still within the demarcated area is not worse or better slightly less erythematous. Psychologically is without concerns for anxiety or depression Results & Data Results & Data ([facility]) Vital Signs (Past 12 Hours) Vital Signs Temp Pulse Resp BP Pulse Ox 05/09/21 16:04 98.1 F 73 16 128/70 96 PG Care Time/CCT Total # of Minutes Spent Total Time Spent with Patient: Total time spent is greater than 50% in coordination of care (as documented) at patient's floor/unit and/or counseling patient: Coding Level of Care Code 66255 Subseq Hosp Care Lvl 2 Diagnoses Cellulitis L03.90 Pulmonary emphysema J43.9 Hypothyroidism E03.9 DVT (deep venous thrombosis) I82.409 HTN (hypertension) I10
[2021-05-09] MEDS: ENOXAPARIN INJ 40 MG/0.4 ML SYR SQ SCH (20:32)
[2021-05-09] MEDS: PIPERACILLIN/TAZOBACTAM 3.375 GM in DEXTROSE 5% 100 ML IV SCH (20:41)
[2021-05-10] MEDS: PIPERACILLIN/TAZOBACTAM 3.375 GM in DEXTROSE 5% 100 ML IV SCH ×3 (04:47→21:23)
[2021-05-10] MEDS: LEVOTHYROXINE SODIUM 50 MCG TABLET PO SCH (04:56)
[2021-05-10 07:13] LABS: BUN Creatinine Ratio 16.2 (10-20); Calcium 8.4 mg/dl (8.5-10.1); Est GFR (African American) 69.4 ml/min; Est GFR (Non-African American) 59.9 ml/min; Potassium 3.9 mmol/L (3.5-5.1)
[2021-05-10] MEDS: FLUTICASONE PROPIONATE NA SPR 16 GM BTL SCH (08:41)
[2021-05-10] MEDS: UMECLIDINIUM/VILANTEROL 62.5/25MCG 7 PUFFS/INHALER INH SCH (08:41)
[2021-05-10] MEDS: CHOLECALCIFEROL 1,000 UNITS 25 MCG TAB PO SCH (08:43)
[2021-05-10] MEDS: METOPROLOL TARTRATE 25 MG TAB PO SCH (08:43)
[2021-05-10] MEDS: ASPIRIN 81 MG ECTAB PO SCH (08:43)
[2021-05-10] MEDS: lisinopril 5 MG TAB PO SCH (08:43)
--- NOTE | 2021-05-10 10:14 | Hospitalist Progress Note ---
Date of Service May 10, 2021 Assessment & Plan (1) Cellulitis: Plan: Cellulitis with concern for cat bite, started on unasyn in ER, continued, blood cultures, resulted gram-negative will change to Zosyn for Pseudomonas coverage and note that white count is reduced by 50%. Continue to wait for identification of gram-negative bacilli in 3 of 4 bottles Doppler negative for dvt gram negative bacteremia, source leg cellulitis (2) Pulmonary emphysema: Plan: Remains stable at this time continues on albuterol , fluticasone, mometasome- formoterol plus umeclidinium-vilanterol (3) Hypothyroidism: Plan: continue Synthroid (4) DVT (deep venous thrombosis): Plan: hisotory of will have on lovenox (5) HTN (hypertension): Plan: continue on metoprolol and lisinopril Admission and Anticipated Discharge Date Admission Date: May 09, 2021 Subjective Patient feels better leukocytosis is improved however her erythema in her leg is about the same. Blood cultures have resulted in 3-4 bottles showing gram- negative bacilli antibiotics amended to Zosyn therapy for Pseudomonas coverage and to continue coverage for animal bite Review of Systems Review of Systems: Mild distress and fatigue no headache, no visual changes no speech or swallowing issues no chest pain, pressure or palpitations no shortness of breath, cough or wheezes no abdominal pain, nausea or vomiting, diarrhea or constipation no dysuria, hematuria or frequency Improving leg discomfort still some swelling no back pain, CVA tenderness or radicular pain Erythema to leg is still in the demarcated area but not worse or better no focal signs of weakness or numbness or altered sensation no complaints of anxiety or depression.. Physical Exam Physical Exam: The patient appeared well nourished and normally developed. Vital signs as documented. Head exam is normocephalic atraumatic Neck is without JVD, thyromegaly, or carotid bruits. Lungs are clear to auscultation, no focal loss of breath sounds Cardiac exam, Rhythm is regular.. No murmurs, rubs or gallops. Abdominal exam reveals normal bowel sounds, soft non tender, no masses Extremities are nonedematous and both pedal pulses are present leg pain is improved somewhat Neurologic exam is alert and oriented, no focal loss of strength or sensation Skin is with erythematous still within the demarcated area is not worse or better slightly less erythematous. Psychologically is without concerns for anxiety or depression Constitutional: well developed and well nourished Eyes: PERRL, conjunctivae normal, anicteric sclerae Neck: trachea midline Thyroid: normal thyroid Respiratory: normal respiratory effort, lungs clear to auscultation Cardiovascular: RRR, no murmur, no edema Gastrointestinal (Abdomen): normal bowel sounds, soft, nontender, no hepatosplenomegaly Musculoskeletal: no cyanosis or clubbing, extremities motor strength 5/5 Skin: + rash, + skin tightening and + erythema Neurologic: PERRL, EOMI, accommodation nl, no face palsy, no dysarthria Psychiatric: A+Ox3, euthymic affect Results & Data Results & Data ([facility]) Vital Signs (Past 12 Hours) Vital Signs Temp Pulse Resp BP Pulse Ox 05/10/21 07:52 98.1 F 75 16 163/74 H 97 05/09/21 22:45 98.1 F 59 L 16 142/94 H 96 PG Care Time/CCT Total # of Minutes Spent Total Time Spent with Patient: Total time spent is greater than 50% in c oordination of care (as documented) at patient's floor/unit and/or counseling patient: Coding Level of Care Code 78452 Subseq Hosp Care Lvl 2 Diagnoses Cellulitis L03.90 Pulmonary emphysema J43.9 Hypothyroidism E03.9 DVT (deep venous thrombosis) I82.409 HTN (hypertension) I10
[2021-05-10] MEDS: ACETAMINOPHEN 325 MG TAB PO PRN (17:12)
[2021-05-10] MEDS: ENOXAPARIN INJ 40 MG/0.4 ML SYR SQ SCH (21:23)
[2021-05-11] MEDS: PIPERACILLIN/TAZOBACTAM 3.375 GM in DEXTROSE 5% 100 ML IV SCH (05:17)
[2021-05-11] MEDS: LEVOTHYROXINE SODIUM 50 MCG TABLET PO SCH (05:49)
[2021-05-11 07:11] LABS: BUN Creatinine Ratio 14.1 (10-20); Calcium 8.7 mg/dl (8.5-10.1); Creatinine Clr Calc Pharmacy 40.6 ml/min; Est GFR (African American) 66.6 ml/min; Est GFR (Non-African American) 57.5 ml/min; Potassium 4.1 mmol/L (3.5-5.1)
[2021-05-11] MEDS: CHOLECALCIFEROL 1,000 UNITS 25 MCG TAB PO SCH (08:27)
[2021-05-11] MEDS: ASPIRIN 81 MG ECTAB PO SCH (08:27)
[2021-05-11] MEDS: lisinopril 5 MG TAB PO SCH (08:27)
[2021-05-11] MEDS: METOPROLOL TARTRATE 25 MG TAB PO SCH (08:27)
[2021-05-11] MEDS: UMECLIDINIUM/VILANTEROL 62.5/25MCG 7 PUFFS/INHALER INH SCH (08:28)
[2021-05-11] MEDS: FLUTICASONE PROPIONATE NA SPR 16 GM BTL SCH (08:28)
--- NOTE | 2021-05-11 19:24 | Discharge Summary ---
Date of Service May 11, 2021 Admission HPI Per Admitting Provider 86 F with RLE cellulitis, repiortedly was with kittens that were biting and scratching legs, also has been gardening recently, leg is too painful to stand and walk, erythema from ankle to just below knee, knee is replaced, otherwise no fever, elevated inflammatory markers. Area of concern do not look consistent with animal bite or scratch lau, Pt has been vaccinated for covid december 2020. No other systemic complaints Principal Diagnosis deanna bite cellulitis with blood cultures showing pasturella Discharge Exam The patient appeared well Vital signs as documented. Lungs are clear to auscultation and appear unlabored Cardiac exam, Rhythm is regular.. No murmurs, rubs or gallops. Abdominal exam reveals normal bowel sounds, soft non tender, no masses Extremities are resolving edema Neurologic exam is alert and oriented, no focal loss of strength or sensation Skin is with receding erythema Psychologically is without concerns for anxiety or depression. Discharge Data Allergies Allergy/AdvReac Type Severity Reaction Status Date / Time codeine Allergy Unknown Unknown Verified 05/08/21 16:25 hydrocodone AdvReac Mild NIGHTMARES, Verified 05/08/21 16:25 ITCHY Urxqecq-Huz-Vis Reductase AdvReac muscle Verified 05/08/21 16:25 Inhibitor aches Consultations 05/08/21 16:38 ED Decision to Admit Stat Ordered Studies 05/08/21 14:37 US venous doppler LE RT Stat Hospital Course (1) Cellulitis: Cellulitis with concern for cat bite, started on unasyn in ER, continued, blood cultures, resulted gram-negative will change to Zosyn for Pseudomonas coverage and note that white count is reduced by 50%. 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 on augmentin Doppler negative for dvt gram negative bacteremia, source leg cellulitis (2) Pulmonary emphysema: Remains stable at this time continues on albuterol , fluticasone, mometasome-formoterol plus umeclidinium-vilanterol (3) Hypothyroidism: continue Synthroid (4) DVT (deep venous thrombosis): hisotory of will have on lovenox (5) HTN (hypertension): continue on metoprolol and lisinopril Total Time Total Time Spent Total Time Spent (In Minutes): It required less than 30 minutes to prepare this patient for discharge Discharge Plan Discharge Items Patient Disposition: Home - Self-Care Reason For Visit: CAT BITE CELLULITIS Discharge Diagnosis: Cat bite cellulitis Activity: Resume your previous activity Non-emergency contact: Primary Care Provider Call non-emergency contact if: your symptoms worsen, your pain is not controlled and you have a fever Follow-up/Referrals: Helen Cox MD [Primary Care Provider] - 05/17/21 2:15 pm (Pt is scheduled for this f/u appt on 05/17/21 at 2:15PM with Lou Hodge PA-C for Dr. Landry.) Diet: Regular Addtl Attending Provider Instructions: elevate leg when resting complete all of your antibiotics follow up with primary care in one week Pending Studies at Discharge: No Stand-Alone Forms: [facility] [place] Sm[place] Cess[place] Medications and DC Order Prescriptions: New amoxicillin-pot clavulanate [Augmentin] 875-125 mg tablet 1 tab PO BID Qty: 26 RF: 0 Continued lisinopril 5 mg tablet 5 mg PO DAILY Qty: 90 RF: 3 metoprolol tartrate 25 mg tablet 25 mg PO DAILY Qty: 90 RF: 3 aspirin [Adult Low Dose Aspirin] 81 mg tablet,delayed release (DR/EC) 81 mg PO DAILY Qty: 30 RF: 2 flsoazn-axmskjsar-nlum 333-133-5 mg tablet 2 tab PO DAILY Qty: 60 RF: 0 coenzyme Q10 10 mg capsule 10 mg PO DAILY Qty: 90 RF: 0 fluticasone propionate [Allergy Relief (fluticasone)] 50 mcg/actuation spray,suspension 1 sprays INTNAS DAILY Qty: 16 RF: 3 levothyroxine 50 mcg capsule 50 mcg PO DAILY Qty: 90 RF: 3 nitroglycerin [Nitrostat] 0.4 mg tablet, sublingual 0.4 mg SL Q5M PRN (Reason: chest pain) Qty: 25 RF: 3 cholecalciferol (vitamin D3) 2,000 unit capsule 2,000 units PO DAILY Qty: 30 RF: 0 albuterol sulfate 90 mcg/actuation HFA aerosol inhaler 2 puff inhalation QID Qty: 8.5 RF: 3 Anoro Ellipta 62.5-25 mcg/actuation blister with device 1 inh inhalation DAILY Qty: 60 RF: 3 Discharge Orders: Discharge Order (Routine); Ordered 05/11/21 Ordered By: Andrea Freeman/Other Patient Handouts: Preventing Deep Vein Thrombosis Admission Data Admit Date/Time: 05/09/21 13:50 Attending Provider: Andrea Chacon Admit Provider: Andrea Chacon Primary Care Provider: Helen Cox V. Other Providers: Andrea Chacon Other Interventions: Discharge Summary Assessment (RN) Last Done: 05/11/21 11:15 Coding Level of Care Code D/C DAY MANAGEMENT <30 MINS Diagnoses Cellulitis L03.90 Pulmonary emphysema J43.9 Hypothyroidism E03.9 DVT (deep venous thrombosis) I82.409 HTN (hypertension) I10
== END 2021-05-11 13:34 | disposition home or self-care (01) | DRG 603 ==
LOC: ED 13:28 → 3W 13:28